=== PATIENT | male | born 1980 | race African-American/Black ===

== ENCOUNTER 2023-01-23 23:53 | Emergency (ER) | payer MEDICAID ==
[~2023-01-23] VITALS: Ht 177.8 cm; Wt 115.0 kg
[2023-01-24 00:09] VITALS: BP 123/65; PULSE 79; RESP 18; TEMP 98.6; O2SAT 95
[2023-01-24 02:41] LABS: HEMATOCRIT. 38.3 % (42.0-52.0)
[2023-01-24 02:45] LABS: BASOPHILS % 0.9 % (0.0-2.0); EOSINOPHILS % 2.8 % (0.0-5.0); HEMOGLOBIN. 12.9 g/dL (14.0-18.0); LYMPHOCYTES % 23.6 % (20.0-50.0); MEAN CORPUSCULAR HEMOGLOBIN 28.4 pg (28.0-32.0); MEAN CORPUSCULAR VOLUME 83.9 fL (80.0-94.0); MONOCYTES % 6.2 % (2.0-8.0); NEUTROPHILS % 66.5 % (40.0-76.0); PLATELET 172 x1000/uL (130-400); RED BLOOD CELL COUNT 4.56 mill/uL (4.7-6.1); RED CELL DISTRIBUTION WIDTH 14.2 % (11.6-14.6)
[2023-01-24 02:52] LABS: CHLORIDE 110 mEq/L (98-107)
[2023-01-24 03:01] LABS: ETHANOL BLOOD 88 mg/dL (-10)
== END 2023-01-24 08:38 | disposition home or self-care (01) ==
LOC: ER 23:53 → EDBD 23:53 → ER 01-24 08:38
DX: R00.0 Tachycardia, unspecified (principal)
CPT/HCPCS: 36415; 71045; 80053; 80320; 85025; 99285; G0480